=== PATIENT | female | born 1945 | race Caucasian/White ===

== ENCOUNTER 2017-05-31 11:32 | Emergency (ER) | payer OTHER ==
[2017-05-31 10:54] VITALS: BMI 24.1
[2017-05-31 11:38] VITALS: RESP 18; TEMP 97.9; O2SAT 100
[2017-05-31] MEDS ORDERED: Sodium Chloride 0.9% 1,000 ML IV STA (12:06)
[2017-05-31] MEDS ORDERED: Morphine 4 mg/ml ISec IVP STA (12:08)
--- NOTE | 2017-05-31 12:12 | ED PDOC ---
Arrival/HPI - General Chief Complaint: Abdominal Pain Time Seen by Provider: 05/31/17 11:38 Historian: Patient, Family - History of Present Illness Narrative History of Present Illness (Text): 05/31/17 12:02 A 72 year old female, whose past medical history includes leukemia (no longer in treatment), acid relfux, thyroid problem, asthma, and polyps in stomach, whom is accompanied by family members (translating for patient in [place]), presents to the emergency department complaining of abdominal pain, nausea, diarrhea (1 episode), and vomiting (2 episodes). Per family, patient was normal while eating breakfast, which she ate prune jelly. Approximately 15 minutes after eating, at around 10:00, patient began experiencing symptoms. Patient reports having black stool at the time, and notes vomit is non-bilious and non- bloody. Family states patient has had abdominal problems in the past whenever after eating a lot of fruits and anything spicy. Patient denies any past gallbladder issues, and no endoscopy. Also, patient experiencing leg stiffness at this time. No other symptoms mentioned as of now. No PMD Time/Duration: Other (10:00 this morning after eating breakfast) Symptom Onset: Sudden Symptom Course: Unchanged Past Medical History - Provider Review Nursing Documentation Reviewed: Yes - Tetanus Immunization Tetanus Immunization: Unknown - Cardiac Hx Cardiac Disorders: No - Pulmonary Hx Respiratory Disorders: Yes Hx Bronchitis: Yes - Neurological Hx Neurological Disorder: No - HEENT Hx HEENT Disorder: No - Renal Hx Renal Disorder: No - Endocrine/Metabolic Hx Endocrine Disorders: Yes Hx Hypothyroidism: Yes - Hematological/Oncological Hx Blood Disorders: Yes Hx Cancer: Yes (leukemia) - Integumentary Hx Dermatological Disorder: No - Musculoskeletal/Rheumatological Hx Musculoskeletal Disorders: Yes (TEAR LEFT ACHILLES/REPAIR) - Gastrointestinal Hx Gastrointestinal Disorders: Yes - Genitourinary/Gynecological Hx Genitourinary Disorders: No - Psychiatric Hx Psychophysiologic Disorder: Yes Hx Depression: Yes Hx Substance Use: No - Anesthesia Hx Anesthesia Reactions: No Hx Malignant Hyperthermia: No - Suicidal Assessment Feels Threatened In Home Enviroment: No Family/Social History - Physician Review Nursing Documentation Reviewed: Yes Family/Social History: No Known Family HX Smoking Status: Never Smoked Hx Alcohol Use: No Hx Substance Use: No Allergies/Home Meds Allergies/Adverse Reactions: Allergies No Known Allergies Allergy (Verified 05/31/17 11:03) Home Medications: Home Meds Medication Instructions Recorded Confirmed Alprazolam 0.5 mg PO PRN PRN 01/27/12 05/31/17 Levothyroxine Sodium 75 mcg PO DAILY 01/27/12 05/31/17 [Levothyroxine] Omeprazole 40 mg PO DAILY 01/27/12 05/31/17 Donepezil [Aricept] 10 mg PO HS 05/31/17 05/31/17 Levocetirizine Dihydrochloride 5 mg PO DAILY 05/31/17 05/31/17 [Xyzal] Meloxicam [Mobic] 15 mg PO DAILY 05/31/17 05/31/17 Review of Systems - Physician Review All systems were reviewed & negative as marked: Yes - Review of Systems Gastrointestinal: Abdominal Pain, Stool Changes (black stool at time of having diarrhea), Diarrhea (1 episode), Nausea, Vomiting (2 episodes) Musculoskeletal: Other (leg stiffness) Physical Exam Vital Signs Reviewed: Yes Vital Signs Temp Pulse Resp BP Pulse Ox 05/31/17 14:25 65 18 137/87 100 05/31/17 11:31 97.9 F 59 L 18 148/70 100 Temperature: Afebrile Blood Pressure: Normal Pulse: Regular Respiratory Rate: Normal Appearance: Positive for: Well-Appearing Pain Distress: None Mental Status: Positive for: Alert and Oriented X 3 - Systems Exam Conjunctiva: Present: Other (pale) Respiratory/Chest: Present: Clear to Auscultation, Good Air Exchange. No: Respiratory Distress, Accessory Muscle Use Cardiovascular: Present: Regular Rate and Rhythm, Normal S1, S2. No: Murmurs Abdomen: Present: Tenderness (epigastric region, with associated pain), Guarding. No: Rebound Rectal: Present: Other (trace guaiac positive, soft dark brown stool) Upper Extremity: Present: Normal Inspection. No: Cyanosis, Edema Lower Extremity: Present: Normal Inspection. No: Edema Neurological: Present: GCS=15, CN II-XII Intact, Speech Normal Skin: Present: Pale Psychiatric: Present: Alert, Oriented x 3, Normal Insight, Normal Concentration Medical Decision Making ED Course and Treatment: 05/31/17 12:06 Impression: 72 year old female with abdominal pain, nausea, vomiting (2 episodes ), and diarrhea (1 episode). Physical exam shows epigastric tenderness with associated pain, guarding and no rebound; pale conjunctiva; pale skin. Differential Diagnosis included but are not limited to: Gastritis vs. GERD vs. GI Bleed Plan: -- EKG -- Labs -- Urinalysis -- Morphine -- Zofran -- IV Fluids -- Reassess and disposition Progress Notes: 05/31/17 13:04 H&H specimen results unchanged from 05/06/2017. No evidence of acute significant blood loss. 05/31/17 14:04 Lab results are unremarkable. Will reevaluate patient for possible discharge. 05/31/17 14:08 Patient's bowel pain has improved and currently no longer experiencing abdominal discomfort. Explained to patient about lab results, which were essentially negative. H&H results significantly unchanged since last month. Likely Mobic exacerbated her gastric irritation. Suggested to patient to take Tylenol as an alternative for osteoarthritis. Will be writing prescription for Protonix. Also suggested follow-up with PMD for EGD procedure. Final ddx: Gastritis vs. GERD - Lab Interpretations Lab Results: 05/31/17 12:25 05/31/17 13:15 Lab Results 05/31/17 13:15: Sodium 139, Potassium 3.6, Chloride 104, Carbon Dioxide 26, Anion Gap 12, BUN 15, Creatinine 0.7, Est GFR ( Amer) > 60, Est GFR (Non- Af Amer) > 60, Random Glucose 111 H, Calcium 9.5, Total Bilirubin 1.0, AST 28, ALT 27, Alkaline Phosphatase 65, Total Protein 7.0, Albumin 3.7, Globulin 3.3, Albumin/Globulin Ratio 1.1, Amylase 87, Lipase 138 05/31/17 12:25: PT 11.9, INR 1.03, APTT 24.2 L 05/31/17 12:25: WBC 6.7 D, RBC 4.39, Hgb 10.8 L, Hct 34.3 L, MCV 78.1 L, MCH 24.6 L, MCHC 31.5, RDW 15.5 H, Plt Count 206, MPV 10.9, Gran % 81.9 H, Lymph % ( Auto) 11.5 L, [place] % (Auto) 6.1 H, Eos % (Auto) 0.4 L, Baso % (Auto) 0.1, Gran # 5.46, Lymph # (Auto) 0.8 L, [place] # (Auto) 0.4, Eos # (Auto) 0.0, Baso # (Auto ) 0.01 I have reviewed the lab results: Yes - Medication Orders Current Medication Orders: Discontinued Medications Sodium Chloride (Sodium Chloride 0.9%) 1,000 mls @ 100 mls/hr IV .Q10H STA Stop: 05/31/17 22:05 Last Admin: 05/31/17 12:03 Dose: 100 mls/hr eMAR Start Stop Document 05/31/17 12:03 HI (Rec: 05/31/17 12:42 HI [id number]) Intravenous Solution Start Date 05/31/17 Start Time 12:03 Morphine Sulfate (Morphine) 4 mg IVP STAT STA Stop: 05/31/17 12:09 Last Admin: 05/31/17 12:03 Dose: 4 mg MAR Pain Assessment Document 05/31/17 12:03 HI (Rec: 05/31/17 12:42 HI [id number]) Pain Reassessment Is this a pain reassessment? No Sleep Is patient sleeping during reassessment? No Presence of Pain Presence of Pain Yes Location Pain Location Body Site Abdomen Description Description Constant Intensity of Pain at present 8 Acceptable Level of Pain 2 Pain Behavior Facial Grimacing IVP Administration Document 05/31/17 12:03 HI (Rec: 05/31/17 12:42 HI [id number]) Charges for Administration # of IVP Administrations 1 Ondansetron HCl (Zofran Inj) 4 mg IVP STAT STA Stop: 05/31/17 12:09 Last Admin: 05/31/17 12:03 Dose: 4 mg IVP Administration Document 05/31/17 12:03 HI (Rec: 05/31/17 12:42 HI [id number]) Charges for Administration # of IVP Administrations 1 Pantoprazole Sodium (Protonix Inj) 40 mg IVP STAT STA Stop: 05/31/17 12:32 - Scribe Statement The provider has reviewed the documentation as recorded by the Federico Andrade Provider Scribe Attestation: All medical record entries made by the Scribe were at my direction and personally dictated by me. I have reviewed the chart and agree that the record accurately reflects my personal performance of the history, physical exam, medical decision making, and the department course for this patient. I have also personally directed, reviewed, and agree with the discharge instructions and disposition. Disposition/Present on Arrival - Present on Arrival Any Indicators Present on Arrival: No History of DVT/PE: No History of Uncontrolled Diabetes: No Urinary Catheter: No History of Decub. Ulcer: No History Surgical Site Infection Following: None - Disposition Have Diagnosis and Disposition been Completed?: Yes Diagnosis: Gastritis Disposition: HOME/ ROUTINE Disposition Time: 19:29 Patient Plan: Discharge Condition: GOOD Discharge Instructions (ExitCare): Gastritis Print Language: SAMI Prescriptions: Pantoprazole Sodium [Protonix] 40 mg PO DAILY #14 ect Referrals: [facility] [place] [Outside] - Follow up with primary Cheri Gibson MD [Family Provider] - Follow up with primary Forms: [employer] ([place]i)
[2017-05-31 12:53] LABS: BASO # 0.01 K/mm3 (0.0-2.0); BASO % 0.1 % (0.0-3.0); EOS % 0.4 % (1.5-5.0); GRAN # 5.46 (1.4-6.5); GRAN % 81.9 % (50.0-68.0); HEMOGLOBIN 10.8 g/dL (12.0-16.0); LYMPH # 0.8 (1.2-3.4); LYMPH % 11.5 % (22.0-35.0); MEAN CELL VOLUME 78.1 fl (80.0-105.0); MEAN CORPUSCULAR HEMOGLOBIN 24.6 pg (25.0-35.0); MEAN CORPUSCULAR HGB CONC 31.5 g/dl (31.0-37.0); MEAN PLATELET VOLUME 10.9 fl (7.0-11.0); MONO # 0.4 (0.1-0.6); MONO % 6.1 % (1.0-6.0); RBC 4.39 10^6/uL (3.5-6.1); RED CELL DISTRIBUTION WIDTH 15.5 % (11.5-14.5); WHITE BLOOD COUNT 6.7 10^3/ul (4.5-11.0)
[2017-05-31 13:00] LABS: INR 1.03 (0.93-1.08); PARTIAL THROMBOPLASTIN TIME 24.2 Seconds (25.1-36.5); PROTHROMBIN TIME 11.9 SECONDS (9.4-12.5)
[2017-05-31 13:48] LABS: ALB/GLOB RATIO 1.1 (1.1-1.8); ALBUMIN 3.7 g/dL (3.0-4.8); ALT/SGPT 27 U/L (7-56); AMYLASE 87 U/L (35-125); AST/SGOT 28 U/L (14-36); BLOOD UREA NITROGEN 15 mg/dL (7-21); CALCIUM 9.5 mg/dL (8.4-10.5); GFR AFRICAN-AMERICAN > 60; GFR NON-AFRICAN AMERICAN > 60; LIPASE 138 U/L (23-300)
--- NOTE | 2017-05-31 14:28 | CARD ---
APPROVED REPORT EKG Measurement Heart [id number] <Conclusion> Normal sinus rhythm Possible Left atrial enlargement Septal infarct, age undetermined Abnormal ECG
[2017-05-31 15:20] VITALS: BP 137/87; PULSE 65
== END 2017-05-31 14:26 | disposition home or self-care (01) ==
LOC: ED 11:32
DX: K29.70 Gastritis, unspecified, without bleeding (principal); K21.9 Gastro-esophageal reflux disease without esophagitis; Z85.6 Personal history of leukemia
CPT/HCPCS: 80053; 82150; 83690; 85025; 85610; 85730; 93005; 96374; 96375; 99284; J2270; J2405; J7040

== ENCOUNTER 2018-05-22 08:14 | Outpatient (CLI) | payer MEDICARE, OTHER | END 2018-05-22 08:15 | disposition home or self-care (01) | LOC: LAB 08:14 ==